=== PATIENT | male | born 1980 | race African-American/Black ===

== ENCOUNTER 2019-02-21 09:20 | Emergency (ER) | payer MEDICAID ==
[~2019-02-21] VITALS: Ht 177.8 cm; Wt 120.0 kg
[2019-02-21] MEDS ORDERED: HYDROCODONE/ACETAMINOPHEN 5/325MG TABLET PO ONE (11:45)
[2019-02-21 12:35] VITALS: BP 141/84
== END 2019-02-21 12:40 | disposition home or self-care (01) ==
LOC: ER 09:52
DX: K04.7 Periapical abscess without sinus (principal); F17.200 Nicotine dependence, unspecified, uncomplicated
CPT/HCPCS: 99283

== ENCOUNTER 2024-12-21 17:13 | Emergency (ER) | payer MEDICAID ==
[~2024-12-21] VITALS: Ht 177.8 cm; Wt 127.3 kg
[2024-12-21 17:42] VITALS: BP 168/119; PULSE 112; RESP 18; TEMP 36.9; O2SAT 97
== END 2024-12-21 20:14 | disposition left against medical advice (07) ==
LOC: ER 17:13
DX: K08.89 Other specified disorders of teeth and supporting structures (principal); Z53.21 Procedure and treatment not carried out due to patient leaving prior to being seen by health care provider

== ENCOUNTER 2025-02-14 14:14 | Inpatient (IN) | payer MEDICAID ==
[~2025-02-14] VITALS: Ht 177.8 cm; Wt 133.4 kg
[2025-02-14] MEDS: TETANUS, DIPHTHERIA, PERTUSSIS VAC/PF 0.5ML (>10YR OLD) IM ONE (14:56)
[2025-02-14 15:13] LABS: BASOPHILS % 0.4 % (0.0-2.0); CHLORIDE 105 mEq/L (98-107); EOSINOPHILS % 0.7 % (0.0-5.0); HEMATOCRIT. 41.3 % (42.0-52.0); HEMOGLOBIN. 13.3 g/dL (14.0-18.0); LYMPHOCYTES % 16.8 % (20.0-50.0); MEAN CORPUSCULAR HEMOGLOBIN 30.8 pg (28.0-32.0); MEAN CORPUSCULAR HGB CONC 32.1 g/dL (31.0-37.0); MEAN PLATELET VOLUME 8.3 fl (7.4-10.4); MONOCYTES % 3.3 % (2.0-8.0); NEUTROPHILS % 78.8 % (40.0-76.0); PLATELET 264 x1000/uL (130-400); RED CELL DISTRIBUTION WIDTH 18.8 % (11.6-14.6); SODIUM 144 mEq/L (136-145); WHITE BLOOD COUNT 12.6 x1000/uL (4.5-11.0)
[2025-02-14 15:14] LABS: CALCIUM 9.2 mg/dL (8.7-10.4); CARBON DIOXIDE 20 mEq/L (21-32)
[2025-02-14 15:19] LABS: CREATININE 1.7 mg/dL (0.6-1.3); GLUCOSE 111 mg/dL (70-105); UREA NITROGEN BLOOD 10 mg/dL (9-23)
[2025-02-14 15:20] LABS: ETHANOL BLOOD 276 mg/dL (<10); TROPONIN I HIGH SENSITIVITY 37 ng/L (3.0-53)
[2025-02-14 15:31] LABS: POTASSIUM 2.8 mEq/L (3.5-5.1)
[2025-02-14] MEDS: KCL 10MEQ/50ML PREMIX 50 ML IV SCH (16:58)
[2025-02-14] MEDS: FOLIC ACID 1 MG, THIAMINE HCL 100 MG, MVI, ADULT NO.1 10 ML in DEXTROSE 5% WATER 1,000 ML IV ONE (16:58)
[2025-02-14 17:43] LABS: TROPONIN I HIGH SENSITIVITY 61 ng/L (3.0-53)
[2025-02-14] MEDS ORDERED: ASPIRIN 81MG TABLET PO ONE (18:30)
[2025-02-14 19:00] VITALS: BP 151/101; PULSE 117; RESP 20; TEMP 37
[2025-02-14 20:33] LABS: POTASSIUM 3.7 mEq/L (3.5-5.1)
[2025-02-14 20:44] LABS: THYROID STIMULATING HORMONE 0.74 uIU/mL (0.55-4.78)
[2025-02-14] MEDS: CEFTRIAXONE 1GM/50ML 50 ML IV SCH (21:14)
[2025-02-14] MEDS: ATORVASTATIN CALCIUM 40MG TABLET PO SCH (21:14)
[2025-02-14] MEDS: ACETAMINOPHEN 325MG TABLET PO PRN (21:14)
[2025-02-14] MEDS ORDERED: IOHEXOL-350 100 ML BOTTLE ONE (23:41)
[2025-02-15] VITALS (7 sets, daily range): BP systolic 162–198; BP diastolic 88–111; PULSE 108–123; RESP 19–22; TEMP 36.2–36.6; O2SAT 92–97
[2025-02-15] MEDS: CLONIDINE 0.1MG TABLET PO PRN (00:17)
[2025-02-15 01:38] LABS: CLARITY URINE CLEAR (CLEAR); COLOR URINE YELLOW (YELLOW); GLUCOSE URINE NEGATIVE (NEGATIVE); KETONES URINE 1+ (NEGATIVE); LEUKOCYTE ESTERASE URINE NEGATIVE (NEGATIVE); NITRITE URINE NEGATIVE (NEGATIVE); OCCULT BLOOD URINE TRACE (NEGATIVE); PROTEIN URINE 2+ (NEGATIVE); SPECIFIC GRAVITY URINE 1.047 (1.005-1.030)
[2025-02-15 01:50] LABS: *AMPHETAMINES SCREEN URINE NEGATIVE (NEGATIVE)
[2025-02-15 01:51] LABS: *BARBITURATES SCREEN URINE NEGATIVE (NEGATIVE); *BENZODIAZEPINES SCREEN URINE NEGATIVE (NEGATIVE); *COCAINE SCREEN URINE NEGATIVE (NEGATIVE); CANNABINOID URINE SCREEN NEGATIVE (NEGATIVE); ECSTASY MDMA SCREEN URINE NEGATIVE (NEGATIVE); METHADONE URINE SCREEN NEGATIVE (NEGATIVE); OPIATES URINE SCREEN NEGATIVE (NEGATIVE); PHENCYCLIDINE URINE SCREEN NEGATIVE (NEGATIVE)
[2025-02-15 02:46] LABS: SQUAMOUS EPITHELIAL CELL URINE FEW /lpf (RARE/1+)
[2025-02-15 02:50] LABS: WBC URINE 0-2 /hpf (0-2)
[2025-02-15 02:53] LABS: BACTERIA URINE NONE SEEN
[2025-02-15] MEDS: HYDROCODONE/ACETAMINOPHEN 10/325MG TABLET PO PRN (03:28)
[2025-02-15 06:12] LABS: BASOPHILS % 0.3 % (0.0-2.0); EOSINOPHILS % 0.6 % (0.0-5.0); HEMOGLOBIN. 12.7 g/dL (14.0-18.0); LYMPHOCYTES % 11.9 % (20.0-50.0); MEAN CORPUSCULAR HEMOGLOBIN 31.7 pg (28.0-32.0); MEAN CORPUSCULAR HGB CONC 33.4 g/dL (31.0-37.0); MEAN CORPUSCULAR VOLUME 94.7 fL (80.0-94.0); MEAN PLATELET VOLUME 8.7 fl (7.4-10.4); MONOCYTES % 6.1 % (2.0-8.0); NEUTROPHILS % 81.1 % (40.0-76.0); PLATELET 225 x1000/uL (130-400); RED BLOOD CELL COUNT 4.01 mill/uL (4.7-6.1); RED CELL DISTRIBUTION WIDTH 18.2 % (11.6-14.6); WHITE BLOOD COUNT 9.6 x1000/uL (4.5-11.0)
[2025-02-15 06:23] LABS: CARBON DIOXIDE 24 mEq/L (21-32); CHLORIDE 102 mEq/L (98-107); POTASSIUM 3.2 mEq/L (3.5-5.1); SODIUM 140 mEq/L (136-145)
[2025-02-15 06:24] LABS: CALCIUM 9.3 mg/dL (8.7-10.4)
[2025-02-15 06:29] LABS: CREATININE 1.3 mg/dL (0.6-1.3); GLUCOSE 89 mg/dL (70-105); UREA NITROGEN BLOOD 9 mg/dL (9-23)
[2025-02-15] MEDS: ONDANSETRON HCL 4MG/2ML INJ IV PRN (07:29)
[2025-02-15] MEDS: PANTOPRAZOLE SODIUM 40 MG/VIAL IV SCH (09:30)
[2025-02-15] MEDS: THIAMINE HCL 100MG TABLET PO SCH (09:30)
[2025-02-15] MEDS: FOLIC ACID 1MG TABLET PO SCH (09:30)
[2025-02-15] MEDS: MULTIVITAMINS,THER W-MINERALS TABLET PO SCH (09:30)
[2025-02-15] MEDS ORDERED: NALOXONE HCL 0.4MG/ML VIAL IV PRN (12:45)
[2025-02-15] MEDS: POTASSIUM CHLORIDE 20MEQ TABLET SR PO NR (13:43)
[2025-02-15] MEDS: AZITHROMYCIN 500 MG TABLET PO NR (13:43)
[2025-02-15] MEDS: CHLORDIAZEPOXIDE 25MG CAPSULE PO SCH (13:43)
[2025-02-15] MEDS: AMLODIPINE 10MG TABLET PO SCH (13:49)
[2025-02-15] MEDS: HYDRALAZINE HCL 50MG TABLET PO SCH (18:22)
[2025-02-15] MEDS: ZOLPIDEM TARTRATE 5MG TABLET PO PRN (23:12)
[2025-02-16] VITALS: BP 127/74; PULSE 124; RESP 16; TEMP 36.6; O2SAT 97
[2025-02-16 04:00] VITALS: BP 125/65; PULSE 127; PULSE 130; RESP 19; RESP 20; TEMP 36.5; O2SAT 99
[2025-02-16 08:00] VITALS: BP 127/78; PULSE 125; RESP 18; RESP 19; TEMP 36.7; O2SAT 98
[2025-02-16] MEDS: AZITHROMYCIN 250 MG TABLET PO SCH (08:16)
[2025-02-16 12:00] VITALS: BP 119/82; PULSE 117; RESP 14; TEMP 37.3; O2SAT 94
[2025-02-16] MEDS: FUROSEMIDE 40MG/4ML VIAL IVP SCH (13:47)
[2025-02-16] MEDS: METOPROLOL TARTRATE 25MG TABLET PO NR (13:47)
[2025-02-16 16:00] VITALS: BP_SYST 102; BP_SYST 141; BP_DIAS 57; BP_DIAS 68; PULSE 102; PULSE 104; RESP 16; RESP 19; TEMP 36.1; TEMP 36.6; O2SAT 100; O2SAT 96
[2025-02-16 17:09] LABS: PHOSPHORUS 2.1 mg/dL (2.5-4.9)
[2025-02-16 20:00] VITALS: BP 124/86; PULSE 116; RESP 18; TEMP 36.5; O2SAT 93
[2025-02-17] VITALS: BP 136/61; PULSE 122; RESP 19; TEMP 36.7; O2SAT 98
[2025-02-17 04:00] VITALS: BP 146/81; PULSE 114; RESP 20; TEMP 36.9; O2SAT 98
[2025-02-17] MEDS: MAGNESIUM 2 G PREMIX 50 ML IV NR (04:43)
[2025-02-17] MEDS: POTASSIUM PHOSPHATE 15 MMOL in DEXT 5% WATER 245 ML IV NR (06:57)
[2025-02-17 08:00] VITALS: BP 110/81; TEMP 36.9
[2025-02-17 09:31] LABS: POTASSIUM 3.5 mEq/L (3.5-5.1)
[2025-02-17 09:41] LABS: PHOSPHORUS 3.2 mg/dL (2.5-4.9)
[2025-02-17 12:00] VITALS: BP 145/78; PULSE 114; RESP 20; TEMP 36.7
[2025-02-17 16:00] VITALS: BP 141/91; PULSE 112; RESP 20; TEMP 36.5; O2SAT 96
[2025-02-17] MEDS: METOPROLOL TARTRATE 50MG TABLET PO NR (16:33)
[2025-02-17] MEDS: METOPROLOL TARTRATE 50MG TABLET PO SCH (21:54)
[2025-02-18 08:00] VITALS: BP 130/62; PULSE 79; RESP 18; TEMP 36.5; O2SAT 97
[2025-02-18 11:11] LABS: CHLORIDE 101 mEq/L (98-107); POTASSIUM 3.3 mEq/L (3.5-5.1); SODIUM 141 mEq/L (136-145)
[2025-02-18 11:12] LABS: CARBON DIOXIDE 30 mEq/L (21-32)
[2025-02-18 11:13] LABS: CALCIUM 10.6 mg/dL (8.7-10.4)
[2025-02-18 11:17] LABS: CREATININE 1.5 mg/dL (0.6-1.3); GLUCOSE 139 mg/dL (70-105)
[2025-02-18 11:18] LABS: UREA NITROGEN BLOOD 16 mg/dL (9-23)
[2025-02-18 12:00] VITALS: BP 133/96; PULSE 96; RESP 18; TEMP 36.6; O2SAT 96
[2025-02-18] MEDS ORDERED: AMLO10TA80 MT (12:55)
[2025-02-18] MEDS ORDERED: FURO-151 MT (12:55)
[2025-02-18] MEDS ORDERED: METO-539 PO (12:55)
[2025-02-18] MEDS ORDERED: CHLO25CA11 MT (12:55)
[2025-02-18] MEDS ORDERED: POTA-205 MT (12:55)
[2025-02-18] MEDS: POTASSIUM CHLORIDE 20MEQ TABLET SR PO NR (14:27)
[2025-02-18 16:00] VITALS: BP 150/107; PULSE 94; RESP 18; TEMP 36.4; O2SAT 97
[2025-02-18] MEDS: FUROSEMIDE 40MG/4 ML UDC PO SCH (21:12)
[2025-02-19 08:02] VITALS: BP 116/82; PULSE 93; RESP 20; TEMP 36.9; O2SAT 100
[2025-02-19 08:09] VITALS: BP 116/82; PULSE 20; TEMP 98.4; O2SAT 100
[2025-02-19 09:37] VITALS: PULSE 20
== END 2025-02-19 10:30 | disposition home or self-care (01) | DRG 115 ==
LOC: ER 14:14 → EDBEDREQTM 17:39 → EDBEDREQ 17:39 → 7WST 18:26
PROVIDERS: ADMIT Internal Medicine; ATTEND Internal Medicine
DX: S02.2XXA Fracture of nasal bones, initial encounter for closed fracture (principal); J96.01 Acute respiratory failure with hypoxia; N17.0 Acute kidney failure with tubular necrosis; I50.33 Acute on chronic diastolic (congestive) heart failure; I27.20 Pulmonary hypertension, unspecified; E87.6 Hypokalemia; W18.39XA Other fall on same level, initial encounter; E66.9 Obesity, unspecified; F10.129 Alcohol abuse with intoxication, unspecified; Y90.9 Presence of alcohol in blood, level not specified; F45.8 Other somatoform disorders; Y93.89 Activity, other specified; Y92.89 Other specified places as the place of occurrence of the external cause; Y99.8 Other external cause status; Z68.41 Body mass index [BMI] 40.0-44.9, adult
CPT/HCPCS: 36415; 71045; 71275; 80048; 80061; 80305; 80320; 81003; 83036; 83735; 83880; 84100; 84132; 84145; 84443; 84484; 85025; 90715; 93005; 93306; 97110; 97162; 99291; A4606; J0696; J1940; J2405; J2470; J3411; J3475; J3480; J3490; J7060; J7070; Q9967; G0480